=== PATIENT | female | born 1980 | race Two or more races ===

== ENCOUNTER → 2024-11-17 | Outpatient (CLI) | payer MEDICAID, SELFPAY ==
--- NOTE | 2024-11-17 | XR_ITS ---
Examination: Screening digital mammography, bilateral Computer aided detection 3-D breast Tomosynthesis, bilateral Date and time of exam: 11/17/2024, 3:18 PM Comparisons: February 2023 Indications: Screening Technique: Nonmagnified MLO, CC views of the breasts to been obtained, reconstructed from 3-D Tomosynthesis images. R2 computer aided detection program utilized for evaluation of suspicious masses and/or abnormal calcifications. 3-D Tomosynthesis images obtained. Technologist: Findings: There are scattered areas of fibroglandular density. Focal asymmetry outer left breast 6.6 cm from the nipple on the CC view. Otherwise, no evidence of abnormal masses or suspicious calcifications. Impression: Left focal asymmetry as above. Spot compression views and possible ultrasound evaluation recommended. BI-RADS category 0: Incomplete assessment; need additional imaging evaluation
== END | disposition home or self-care (01) ==
PROVIDERS: Referring Provider Nurse Practitioner; Visit Provider Nurse Practitioner
DX: Z12.31 Encounter for screening mammogram for malignant neoplasm of breast (principal); N64.89 Other specified disorders of breast
CPT/HCPCS: 77063; 77067

== ENCOUNTER → 2025-01-12 | Outpatient (CLI) | payer MEDICAID, SELFPAY ==
--- NOTE | 2025-01-12 14:00 | XR_ITS ---
Examination: Breast ultrasound, unilateral, left complete Date and time of exam: January 12, 2025 1441 hours INDICATIONS: Mammogram November 17, 2024 focal asymmetry outer left breast 6.6 cm from the nipple Technique: Real-time lauren scale ultrasonographic imaging performed left breast including all 4 quadrants as well as nipple retroareolar and axillary region. Findings: No cystic or solid mass IMPRESSION: BI-RADS Category 1: Negative study
--- NOTE | 2025-01-12 14:30 | XR_ITS ---
Examination: Diagnostic digital mammography, unilateral, left Computer aided detection 3-D breast Tomosynthesis, unilateral Date and time of exam: January 12, 2025 1539 hours INDICATIONS: Mammogram November 17, 2024 focal asymmetry outer left breast 6.6 cm from the nipple on the CC view Technique: Nonmagnified MLO, CC views of the left breast have been obtained, reconstructed from 3-D Tomosynthesis images. R2 computer aided detection program utilized for evaluation of suspicious masses and/or abnormal calcifications. 3-D Tomosynthesis images obtained. Findings: Scattered areas of fibroglandular density Focal asymmetry remains outer left breast on the CC view Impression: BI-RADS category 3: Probably benign findings One additional 6 month left mammogram follow-up is needed to document stability of focal asymmetry described above
== END | disposition home or self-care (01) ==
LOC: CDIM 14:16
PROVIDERS: PCP Nurse Practitioner; Referring Provider Nurse Practitioner; Visit Provider Nurse Practitioner
DX: R92.332 Mammographic heterogeneous density, left breast (principal); N64.89 Other specified disorders of breast
CPT/HCPCS: 76641; 77061; 77065; G0279